=== PATIENT | male | born 1970 | race Caucasian/White ===

== ENCOUNTER 2018-03-21 12:13 | Day surgery (SDC) | payer OTHER ==
[2018-03-21] MEDS ORDERED: LIDOCAINE 100 MG SYRINGE (13:47)
[2018-03-21] MEDS ORDERED: PROPOFOL 20 ML ×3 (13:47→13:48)
== END 2018-03-21 16:36 | disposition home or self-care (01) ==
LOC: GIL 12:13
DX: R19.4 Change in bowel habit (principal); K44.9 Diaphragmatic hernia without obstruction or gangrene; K21.0 Gastro-esophageal reflux disease with esophagitis; K64.8 Other hemorrhoids; E11.9 Type 2 diabetes mellitus without complications
CPT/HCPCS: 43239; 82962; 88305; 88312